=== PATIENT | female | born 1985 | race Caucasian/White ===

== ENCOUNTER → 2018-09-20 16:23 | Outpatient (CLI) | payer OTHER, SELFPAY ==
[2018-09-20 17:36] LABS: Group B Strep DNA By PCR POSITIVE (Negative)
[2018-09-20 17:37] LABS: Probe Check PASS
== END ==
PROVIDERS: Referring Provider Obstetrics & Gynecology; Visit Provider Obstetrics & Gynecology
DX: O09.93 Supervision of high risk pregnancy, unspecified, third trimester (principal); Z3A.36 36 weeks gestation of pregnancy
CPT/HCPCS: 87081; 87653

== ENCOUNTER 2018-09-21 15:49 | Inpatient (IN) | payer OTHER, SELFPAY ==
[2018-09-21 16:04] VITALS: BMI 51.8
[2018-09-21] MEDS: Lactated Ringers 1,000 ML 50 ML IV (16:35)
[2018-09-21 16:54] VITALS: BP 175/92; PULSE 79
[2018-09-21 17:02] LABS: Hematocrit 35.9 % (37-47); Hemoglobin 11.5 g/dl (12.0-15.0); Mean Corpuscular Hgb 28.3 pg (27.0-32.0); Mean Corpuscular Volume 88.4 fL (81-99); Platelet Count 231 K/mm3 (150-450); RBC Distribution Width CV 14.7 % (11.6-14.6); Red Blood Count 4.06 M/mm3 (4.2-5.4); Scan Indicated on CBC? Y/N NO; White Blood Count 16.7 K/mm3 (4.4-11.0)
[2018-09-21 17:09] LABS: International Normalized Ratio 0.9; Prothrombin Time (Protime)PT. 12.6 SECONDS (11.7-14.9)
[2018-09-21 17:10] LABS: Partial Thromboplast Time 24.9 Seconds (24.1-36.2)
[2018-09-21 17:13] LABS: AST(SGOT) 8 U/L (15-37); Alanine Aminotransfer ALT/SGPT 18 U/L (13-56); Creatinine, Serum 0.64 mg/dL (0.55-1.02); EST Glomerular Filtration Rate 112 mL/min (>60); Est Glom Filt Rate - Afr Amer 136 mL/min (>60); Estimated Creatinine Clearance 103.42 ml/min; Uric Acid 5.3 mg/dL (2.6-6.0)
[2018-09-21 17:20] VITALS: BP 167/91; PULSE 85
[2018-09-21] MEDS: miSOPROStol 25 MCG TABLET VAGINAL (19:38)
--- NOTE | 2018-09-21 19:54 | PCM.HP.OB ---
History Date of Admission: 09/21/18 Final HANK: 10/17/18 Gestational age: 36 Weeks and 2 Days History of this : This is a 33 year-old, G [], P [], at 36 weeks gestational age. Medical History: Medical History (Last Updated 09/21/18 @ 19:55 by Igor Cook) Anemia affecting O99.019 Hx LEEP (loop electrosurgical excision procedure), cervix, O34.40, Z98.890 Obesity affecting O99.210 Chronic hypertension affecting O10.919 Allergies sulfamethoxazole [From Bactrim] Allergy (Unverified 09/21/18 16:05) Rash trimethoprim [From Bactrim] Allergy (Verified 09/21/18 19:27) Rash Home Medications: Home Medications Aspirin [Aspirin, Baby] 81 mg PO DAILY@0800 09/21/18 Ferrous Sulfate [Slow Fe] 65 mg PO QHS 09/21/18 Labetalol [Trandate] 800 mg PO TID 09/21/18 Vits [Prenatabs FA] 1 tablet PO DAILY 09/21/18 Smoking Status: Never smoker Alcohol: None Number of Fetus(es): 1 Heart Tracin with moderate variability, accels TOCO Analysis: quiet History Past Pregnancies: Past Pregnancies Delivery Date Name GA/Weeks Outcome Route Weight Infant Gender Labor Length Anesthesia Delivery Location Provider FOB Labs: see [facility] for records Physical Exam Vitals: Vital Signs Pulse BP 85 167/91 H 09/21/18 17:20 09/21/18 17:20 General: Alert, Oriented x3 Abdomen: Soft, Non Tender, Non-Distended TRADE FACILITATOR: Normal external genitalia Estimated gestational size: Appropriate for gestational size Cervix Dilation (cm): 0 Station: -3 Effacement (%): 50 Assessment/Plan This is a 33 year-old at 36&2 weeks gestational age with uncontrolled chtn Admit to L&D Induction - vaginal cytotec placed Hypertension - preE labs reviewed. Continue labetalol 800mg tid. S/p IV hydralazine & PO procardia. Starting procardia XL 60mg scheduled. GBS positive - pcn per protocol EFW - less than 4500g, patient with adequate pelvis
[2018-09-21] MEDS: Acetaminophen 325 MG Tablet PO (20:04)
[2018-09-21] MEDS: NIFEdipine 60 MG Tablet PO (20:05)
[2018-09-21] MEDS: Labetalol 200 MG Tablet 800 MG PO (20:38)
--- NOTE | 2018-09-21 22:33 | PCM.PN.BLA ---
Progress Note S: Patient denies complaints O: BP currently 156/76, some 160's-170's/80's A&P: continue labetalol & nifedipine XL scheduled Will initiate nicardipine drip for persistent severe range blood pressures. Discussed with & ELISHA to start after using oral nifedipine XL. Plan of care discussed with nursing staff.
[2018-09-22] MEDS: miSOPROStol 25 MCG TABLET 50 MCG PO (00:09)
[2018-09-22] MEDS: Acetaminophen 325 MG Tablet PO ×4 (03:44→21:01)
--- NOTE | 2018-09-22 05:09 | PCM.PN.BLA ---
Progress Note S: Patient feels some ctxs. Headache has resolved. O: BP's - 148-183/78-103 cvx - FT/60/-3 fhts - 130 with moderate variability, accels tocos - irregular A&P: Continue induction for poorly controlled chtn - on cytotec. Elevated BP's - titrate nicardipine drip to control BP's. Continue oral labetalol & nifedipine XL. Monitor for preeclampsia.
[2018-09-22] MEDS: Labetalol 200 MG Tablet 800 MG PO (05:18)
--- NOTE | 2018-09-22 07:35 | EKGRS_ITS ---
Test Reason : SEVERE HTN Blood Pressure : / mmHG Vent. Rate : 089 BPM Atrial Rate : 089 BPM P-R Int : 174 ms QRS Dur : 076 ms QT Int : 372 ms P-R-T Axes : 027 006 036 degrees QTc Int : 452 ms Normal sinus rhythm Normal ECG No previous ECGs available Confirmed by SUBHASH CHAKRABORTY, AMBERLY ([id number]), school photograph editor KAYLAN TOMPKINS ([id number]) on 09/22/2018 8:45:57 AM Referred By: Ava Alvarez Confirmed By:AMBERLY CULLEN MD
--- NOTE | 2018-09-22 07:37 | ECHOD_ITS ---
Reason For Study: HTN Procedure This was a 2D Doppler, Color Flow transthoracic echocardiogram. Technically difficult study. Patient is undergoing labor induction and laying towards her right side in order for babies heart rate to be monitored. Exam performed portable in patient room. Left Ventricle Normal size and thickness. The estimated ejection fraction is 65 %. Normal diastology for age. No regional wall motion abnormalities noted. Right Ventricle Normal size and thickness. Normal systolic function. Atria Normal left atrium. Normal right atrium. Normal atrial septum. Mitral Valve The mitral valve is structurally normal. No prolapse or stenosis seen. Tricuspid Valve Normal tricuspid valve. Unable to estimate RV systolic pressure due to inadequate jet, pulmonary artery pressure probably normal. Aortic Valve Normal aortic valve. Trisinus/trileaflet aortic valve. Pulmonic Valve Normal pulmonic valve. Great Vessels Normal aortic root. Normal arch. Normal inferior vena cava. Inferior vena cava collapse with sniff. Pericardium/Pleural No pericardial effusion. MMode/2D Measurements & Calculations LVIDd: 4.9 cm IVSd: 1.5 cm LA dimension: 3.3 cm LVIDs: 3.2 cm LVPWd: 1.1 cm FS: 34.3 % LAV(MOD-sp4): 34.5 ml LA A4 area: 15.3 cm2 Time Measurements MV dec time: 0.18 sec Doppler Measurements & Calculations MV E max robby: 67.2 cm/sec Lat Peak E' Robby: 9.2 cm/sec Med Peak E' Robby: 10.6 cm/sec MV A max robby: 94.1 cm/sec E/E' lat: 7.3 E/E' med: 6.3 MV E/A: 0.71 Ao V2 max: 161.8 cm/sec LV V1 max: 119.5 cm/sec PA V2 max: 113.6 cm/sec Ao max P.5 mmHg LV V1 max P.7 mmHg Ao V2 mean: 108.6 cm/sec LV V1 mean P.6 mmHg Ao mean P.4 mmHg LV V1 mean: 72.5 cm/sec Ao V2 VTI: 30.2 cm LV V1 VTI: 23.7 cm Interpretation Summary The estimated ejection fraction is 65 %. Normal diastology for age. Unable to estimate RV systolic pressure due to inadequate jet, pulmonary artery pressure probably normal. There is no comparison study available. Ordering Physician: Ava Alvarez Referring Physician: Ava Alvarez Performed By: Milo Mcmullen RCS
--- NOTE | 2018-09-22 07:41 | PCM.PN.BLA ---
Progress Note Feeling some contractions. No TEJADA or visual changes. Tired. BPs labile edema-2+, DTrs 2+ abd- soft, nontender, gravid Cervix - .5/50/-3, medium consistency, mid position truong placed over stylette in usual sterile fashion and inflated to 30 cc. Placement over internal os confirmed a/p 33 YOF G1 @ 36 weeks w/ chronic HTN, now labile BPs, severe range will prophylax w/ magensium due to labile HTN, preeclampsia labs normal Monitor BP closely will proceed to pit and truong induction for now AROM when able check ECG and cardiac echo if need to restart nicardipine gtt will consult ICU formally discussed with Dr. fonseca, I am assuming care today
[2018-09-22] MEDS: Magnesium Sulfate 4gm/100mL 6 GM/150 ML IV.SOLN. IV (07:57)
[2018-09-22] MEDS: Magnesium Sulfate 20 GM/500 ML BAG IV ×2 (08:33→18:23)
[2018-09-22] MEDS: Oxytocin 30 units/NS 500 ml 30 UNITS/500 ML IV.SOLN IV (08:42)
[2018-09-22 08:55] VITALS: PULSE 84
[2018-09-22] MEDS: hydrALAZINE 20 MG/ML Vial IV (08:55)
[2018-09-22] MEDS: Lactated Ringers 1,000 ML 50 ML IV ×2 (08:57→15:02)
[2018-09-22] MEDS: fentaNYL-bupivacaine (epidural) 100 ML BAG EPIDURAL ×3 (10:12→19:48)
[2018-09-22 10:25] LABS: Hematocrit 37.1 % (37-47); Hemoglobin 11.9 g/dl (12.0-15.0); Mean Corp Hgb Conc 32.1 g/gl (32-36); Mean Corpuscular Volume 87.3 fL (81-99); Mean Platelet Vol. 9.8 fl (6.2-12.0); Platelet Count 217 K/mm3 (150-450); RBC Distribution Width CV 14.8 % (11.6-14.6); RBC Distribution Width SD 46.1 fl (35.1-43.9); Red Blood Count 4.25 M/mm3 (4.2-5.4); White Blood Count 16.9 K/mm3 (4.4-11.0)
[2018-09-22 10:27] LABS: Scan Indicated on CBC? Y/N NO
[2018-09-22 10:31] LABS: Protein, Urine (Random) 12.1 mg/dL (<11.9); Protein:Creat Ratio 268 mg/g CRE (0-200)
[2018-09-22 10:35] LABS: AST(SGOT) 9 U/L (15-37); Alanine Aminotransfer ALT/SGPT 16 U/L (13-56); Creatinine, Serum 0.62 mg/dL (0.55-1.02); EST Glomerular Filtration Rate 116 mL/min (>60); Est Glom Filt Rate - Afr Amer 141 mL/min (>60); Estimated Creatinine Clearance 106.76 ml/min; Uric Acid 5.2 mg/dL (2.6-6.0)
[2018-09-22 10:40] LABS: Partial Thromboplast Time 25.5 Seconds (24.1-36.2)
--- NOTE | 2018-09-22 12:44 | PCM.PN.BLA ---
Progress Note Feels tired, nauseated and hot. No CP/SOB or visual changes. Frustrated. Not that comfortable even after epidural BPs still labile. Monitoring closely. Marks removed , /-3, AROM w/ large clear fluid. IUPC and FSE placed FHTs normal baseline, moderate variability, some variables after AROM, resolved w/ repositioning tocos- ctx q 3 min a/p 33 YOF w/ labile bp, chronic HTN, considering superimposed preeclampsia w/ severe range BPs at times titrating meds to control BP. Due for labetalol at 2 pm, may give earlier if bps trend up. D/w her recommend cont. induction due to her being high risk surgical patient encouraged to rest and will get epidural replaced if necessary to control pain patient agrees w/ plan
--- NOTE | 2018-09-22 15:06 | PCM.PN.BLA ---
Progress Note Pain well controlled now w/ epidural. Resting. BP controlled w/ nicardipine drip FHTs w/ normal baseline, minimal variability at times, no recurrent decelerations Hold labetalol, control bps w/ nicardipine for now cont. expectant management for vaginal delivery ICU consultation ordered for severe HTN.
--- NOTE | 2018-09-22 15:42 | CON.PCM_ITS ---
Problem List (1) Pre-eclampsia added to pre-existing hypertension Status: Acute Reason for Consult Date of Consultation: 09/22/18 Reason for Consultation: Hypertension History of Present Illness: The patient is a 33 year old F at 36 and 3 weeks gestational age, who presented to [facility] on 09/21/2018 secondary to labor pains. Patient was found to have significant hypertension and was given labetalol and nifedipine. Pressures continued to be elevated, so patient had to be started on nicardipine drip overnight. Some pressures had improved, so this was able to be discontinued this morning. However, this afternoon patient's blood pressure continued to elevate, so it had to be reinitiated. An ICU consult was obtained for assistance in management with Aris guerra. Patient currently is reporting a mild headache. Patient states she has no focal neurologic deficits. Patient is reportedly progressed to 2 cm and is being monitored continuously. Patient denies any chest pain, abdominal pain, nausea or vomiting. Patient reports her pain is well controlled with epidural. Patient reports no significant past medical history until approximately 2 months before . Patient reportedly was complaining of significant headaches on an almost daily basis. Patient reportedly was then diagnosed with hypertension and was started on propranolol. Patient states this had significant improvement in headaches, but had to be discontinued secondary to . Patient had been transitioned over to labetalol and prior to presentation was receiving 800 mg p.o. 3 times daily. Patient denies any history of asthma or toxic exposure. Patient does have morbid obesity, but denies any obstructive sleep apnea. Patient does report a history of hypertension in her father. Past Medical History Medical History: Medical History (Last Updated 09/21/18 @ 19:55 by Igor Cook) Anemia affecting O99.019 Hx LEEP (loop electrosurgical excision procedure), cervix, O34.40, Z98.890 Obesity affecting O99.210 Chronic hypertension affecting O10.919 Allergies sulfamethoxazole [From Bactrim] Allergy (Verified 09/22/18 10:02) Rash trimethoprim [From Bactrim] Allergy (Verified 09/22/18 10:02) Rash Home Medications: Ambulatory Orders Medication Instructions Recorded Aspirin [Aspirin, Baby] 81 mg PO DAILY@0800 09/21/18 Ferrous Sulfate [Slow Fe] 65 mg PO QHS 09/21/18 Labetalol [Trandate] 800 mg PO TID 09/21/18 Vits [Prenatabs FA] 1 tablet PO DAILY 09/21/18 Smoking Status: Never smoker Alcohol: None Review of Systems Comment: See HPI, otherwise negative x10 systems. Patient Problems: Active and Suspected Problems (Last Updated 09/21/18 @ 19:55 by Igor Cook) Pre-eclampsia added to pre-existing hypertension (Acute) Objective: Echocardiogram shows an EF of 65% with normal diastolic function. Unable to estimate RVSP, but assume normal. EKG shows normal sinus rhythm without LVH. - Physical Exam General: Alert, Oriented x3, Cooperative, No apparent distress, - - Morbidly obese. Speaking in full sentences. HEENT: Atraumatic, PERRLA, EOMI, Normocephalic, - - Scleral icterus or injection noted. Glasses in place. Oral: Moist Mucosa, No Gingival or Mucosal Lesions/ Ulcerations Neck: Supple, No JVD, No Nodes, Trachea Midline Lungs: Clear to auscultation, Normal air movement, No rhonchi, No wheeze, No rales Cardiovascular: Regular rate, Regular Rhythm, Normal S1, Normal S2, No murmurs, No rub noted, No Gallop Abdomen: Bowel Sounds Present, Soft, Non Tender, Obese, - - Gravid uterus Extremities: No clubbing, No cyanosis, Capillary Refill Less than 3 Seconds, Edema - Lower extremities Skin: No rashes, No breakdown Musculoskeletal: No Tenderness to Palpation of Joints or Extremities Lymphatic: No Cervical, Supraclavicular, or Inguinal Adenopathy Neurological: Cranial nerves II-XII grossly intact, Neuro grossly intact, Motor Exam 5/5 strength throughout Psych/Mental Status: Alert and oriented to time, place, person, mood and affect Vital Signs Pulse BP 84 167/91 H 09/22/18 08:55 09/21/18 17:20 Weight: 132.8 kg Body Mass Index (BMI) 51.8 Intake and Output for Last 24 Hours 09/20/18 09/21/18 09/22/18 23:59 23:59 23:59 Output Total 550 / 550 850 / 850 Balance -550 / -550 -850 / -850 Laboratory Tests Past 24 Hrs 09/21/18 09/21/18 09/21/18 16:35 16:35 16:35 WBC 16.7 H RBC 4.06 L Hgb 11.5 L Hct 35.9 L MCV 88.4 MCH 28.3 MCHC 32.0 RDW 14.7 H RDW Differential 46.0 H Plt Count 231 MPV 10.0 PT 12.6 INR 0.9 APTT 24.9 Creatinine Estim Creat Clear Calc Est GFR (MDRD) Af Amer Est GFR (MDRD) Non-Af Uric Acid AST ALT U Random Total Protein Urine Creatinine Protein/Creatinin Ratio Blood Type A NEGATIVE Antibody Screen NEGATIVE 09/21/18 09/22/18 09/22/18 16:35 09:50 09:50 WBC 16.9 H RBC 4.25 Hgb 11.9 L Hct 37.1 MCV 87.3 MCH 28.0 MCHC 32.1 RDW 14.8 H RDW Differential 46.1 H Plt Count 217 MPV 9.8 PT 13.0 INR 1.0 APTT 25.5 Creatinine 0.64 Estim Creat Clear Calc 103.42 Est GFR (MDRD) Af Amer 136 Est GFR (MDRD) Non-Af 112 Uric Acid 5.3 AST 8 L ALT 18 U Random Total Protein Urine Creatinine Protein/Creatinin Ratio Blood Type Antibody Screen 09/22/18 09/22/18 09:50 09:50 WBC RBC Hgb Hct MCV MCH MCHC RDW RDW Differential Plt Count MPV PT INR APTT Creatinine 0.62 Estim Creat Clear Calc 106.76 Est GFR (MDRD) Af Amer 141 Est GFR (MDRD) Non-Af 116 Uric Acid 5.2 AST 9 L ALT 16 U Random Total Protein 12.1 H Urine Creatinine 45.10 Protein/Creatinin Ratio 268 H Blood Type Antibody Screen Assessment/Plan Active and Suspected Problems (Last Updated 09/21/18 @ 19:55 by Igor Cook) Pre-eclampsia added to pre-existing hypertension (Acute) RECOMMENDATIONS: 1. Titrate nicardipine for systolic less than 160 2. Monitor for focal neurologic deficits 3. monitoring and delivery options per OB 4. Monitor for seizure activity 5. Monitor fetus for deceleration and hypotension after delivery 6. Okay to transfer to the intensive care unit if necessary IMPRESSIONS: 1. Preeclampsia with accelerated hypertension Patient with significant protein noted in the urine and elevated blood pressures. Patient has been initiated on Cardene drip. May continue baseline labetalol and other medications for blood pressure while on Cardene. Would titrate as orders currently states. Clinical suspicion that nicardipine will be required through the delivery. Patient is having a headache at this time, but no focal neurologic deficits or seizure activity has been reported. Would defer to OB on delivery options. monitoring currently in place. 2. Morbid obesity/history of hypertension Complicates care, management, recovery and prognosis. Code Visit Inpatient E&M: 10164 Init Hosp L3
--- NOTE | 2018-09-22 21:30 | PCM.PN.BLA ---
Progress Note Patient is moderately comfortable with epidural. She complains of some pain in her mid abdomen especially on the left side. Worse with contractions. She has a mild headache and just received some Tylenol for this. heart tones show normal baseline with moderate variability and no repetitive decelerations. Tocometer shows contractions every 2-3 minutes. Cervical examination reveals that the cervix is still 2 cm dilated 70% effaced and -4 station. The head is not significantly engaged and has not changed station since induction was initiated. Is been approximately 30 hours since the patient arrived in and that time she is received Cytotec, Pitocin, Marks and artificial rupture membranes. Despite all these measures, her cervix remains unfavorable. It still firm and the head is unengaged. I discussed with the patient options of continuing induction at this point. Her blood pressure stable and heart tones are reassuring. However, after 30 hours the patient still has not entered into active labor. Patient had been asking for a since noon today, but had agreed to continue to attempted induction of labor. Risk benefits and alternatives to primary were discussed with the patient, her questions were answered and she desires to proceed. The team will be prepared. We will proceed when team and OR ready
[2018-09-22] MEDS: 0.9% Saline Lock 10 ML Syringe IV (21:38)
[2018-09-22] MEDS: Sodium Citrate/Citric Acid 30 ML UDC PO (22:15)
[2018-09-22] MEDS: Oxytocin 30 units/NS 500 ml 30 UNITS/500 ML IV.SOLN 167 UNITS IV (23:00)
--- NOTE | 2018-09-22 23:00 | PLAC_PTH ---
PATIENT: BINDU JAIMES LOC: [facility] U#:[id number] AGE/SX: 33/F ROOM: WP020 RE09/21/[address]: Dr. Ava Alvarez MD : [id number] BED: 1 DIS: 09/25/2018 SPEC #: [id number] RECD: 09/23/18 02:58 STATUS: CODY REErna #: [id number] MAYELIN: 09/22/18 23:[address]: Ava Alvarez DEPT: SURGICAL PATHOLOGY RECD BY: Gigi Douglas ENTERED: 09/23/18 10:24 SP TYPE: PLACENTA OTHR DR: Dr. Elissa Carreno, DO No Primary Care Phys Tissues: Placenta, NOS Procedures: Surgery Specimen Level V HEADER OPERATION: Primary section PRE-OP DIAGNOSIS: Preeclampsia TISSUE SUBMITTED: Placenta MICROSCOPIC DIAGNOSIS Placenta: Placental disc - third trimester placenta (376 gm). Membranes - no pathologic diagnosis. Umbilical cord - three blood vessels and no pathologic diagnosis. :janiya 09/24/18 MICROSCOPIC DESCRIPTION Slides are reviewed. GROSS DESCRIPTION SPECIMEN: PLACENTA / CLINICAL INFORMATION: A. Weight: 2.752 kg B. Gestational Age: 36 weeks C. Sex: Female PLACENTAL WEIGHT (POST FIXATION): 376 gm PLACENTAL DIMENSIONS: 16 x 14 x 2.2 cm PLACENTAL SHAPE: Usual ovoid PLACENTAL WEIGHT FOR GESTATIONAL AGE: Within 10-99th percentile MEMBRANES - Present A. Insertion: Marginal B. Site of rupture from edge: 4.5 cm from edge of placental disc C. Color of membrane: Barnes-young D. Abnormalities: None UMBILICAL CORD - Present A. Color: Barnes-young B. Insertion: Near central insertion C. Length: 43 cm D. Diameter: 1.3 cm E. Number of vessels: Three F. Abnormalities: None PLACENTAL DISC - Present A. Color of surface: Barnes-young B. surface abnormalities: None C. Maternal cotyledons: Intact with minimal tears D. Attached retro placental clot: No clot E. Cut surface: Dark red and spongy F. Lesions: None G. Separate clot: Absent SECTIONS SUBMITTED: 1. Membrane roll and umbilical cord ( end inked) 2. Placental disc, and maternal surfaces 3. Placental disc, and maternal surfaces 4. Placental disc, and maternal surfaces AM:janiya 09/23/18 More sections of umbilical cord is submitted in cassette 5. / SJ:janiya 09/24/18 TC:4 CPT: 03715
--- NOTE | 2018-09-22 23:36 | OP.PCM_ITS ---
Delivery Classification: BETY Final HANK: 10/17/18 Final HANK Source: US <20 weeks Gestational age: 36 Weeks and 3 Days Indications: Failed induction, preeclampsia with severe features, severe hypertension Indications for : - - failed induction, Description of Procedure: The patient was taken to the operating room. She was prepped and draped in the dorsal supine position with a leftward tilt. A Pfannenstiel skin incision was made approximately 2 cm above the symphysis pubis and carried through to underlying layer fascia with the scalpel. The fascia was incised incised in the midline and extended laterally with the Braun scissors. The fascia was dissected off the rectus muscles with blunt and sharp dissection. The rectus muscles were in the midline and the peritoneum was entered bluntly. The peritoneal incision was stretched and the bladder blade was placed. The uterine incision was made in a low transverse fashion with the scalpel and e xtended superiorly and inferiorly with blunt dissection. The amniotic membranes were ruptured bluntly and clear amniotic fluid returned. The 's head was brought to the incision in the flexed position and delivered without difficulty. The remainder of the was delivered with gentle traction and fundal pressure in the standard fashion. The mouth and nares were bulb suctioned. The cord was clamped and cut as the was stimulated. Cord clamping was delayed. The infant was handed off to the waiting nursing staff. The placenta was delivered with fundal massage and gentle traction in the standard fashion. The uterus was exteriorized and cleared of all clots and debris. The cervix was dilated with a ring forcep. The uterine incision was closed with #1 Vicryl in a running locked fashion. A second layer of the same suture was used in an imbricating fashion. The incision was examined and was found to be hemostatic. The uterus was placed back into the peritoneal cavity and hemostasis was again confirmed. The rectus muscles were examined and any bleeding was Bovie cauterized. The parietal peritoneum and rectus muscles were closed en bloc with an 0 Vicryl running suture. The surgical teams outer gloves were then changed. The rectus fascia was examined and any bleeding was Bovie cauterized. Some Guy was placed over the rectus muscles and the rectus fascia was closed with #1 PDS suture in a running standard fashion. The subcutaneous tissue was examining and any bleeding was Bovie cauterized. Guy was placed in the subcutaneous tissue the subcutaneous tissue was reapproximated with 3-0 Vicryl suture in 2 layers. The skin was closed in a subcuticular fashion with Monocryl suture. I performed the entire procedure with assistance. All sponge, lap, and needle counts were correct. The patient was taken to her room for recovery in a stable condition. Amniotic Membrane Rupture Type: Artificial Amniotic Fluid Description: Clear Placenta Disposition: Sent to Pathology Cord Entanglement: Around neck x 1, loose Nuchal Cord Compression: Without compression Cord Vessel Description: 3 Vessels Esitmated Blood Loss (ml): 800 Gender: Female Delayed cord clamping: Yes Pre-op Antibiotic Given: - - Ancef 3 g Complications: None - Admit VTE Documentation VTE Present on Admission: No VTE Mechan Device Prophylaxis: SCD's VTE Pharm Prophylaxis ordered?: Yes
[2018-09-22 23:55] VITALS: BP 162/81; BP 163/77; PULSE 99; RESP 22; TEMP 36.8; O2SAT 95
[2018-09-23] VITALS (37 sets, daily range): BP systolic 101–174; BP diastolic 56–90; PULSE 68–99; RESP 13–26; TEMP 36.3–37.2; O2SAT 92–97
[2018-09-23] MEDS: 0.9% Saline Lock 10 ML Syringe IV ×4 (00:28→23:15)
[2018-09-23] MEDS: Labetalol 200 MG Tablet 800 MG PO (01:04)
[2018-09-23] MEDS: Lactated Ringers 1,000 ML 50 ML IV ×2 (01:57→17:17)
[2018-09-23 03:00] LABS: Pathology Specimen OB SEE PATHOLOGY REPORT
[2018-09-23] MEDS: Magnesium Sulfate 20 GM/500 ML BAG IV ×2 (05:02→15:16)
[2018-09-23] MEDS: Nalbuphine 10 MG/ML Ampul 5 MG IV (05:03)
[2018-09-23] MEDS: Ketorolac 30 MG/ML Syringe IV ×4 (06:06→18:12)
[2018-09-23 06:23] LABS: Hematocrit 38.3 % (37-47); Mean Corp Hgb Conc 31.3 g/gl (32-36); Mean Corpuscular Hgb 27.8 pg (27.0-32.0); Mean Corpuscular Volume 88.7 fL (81-99); Mean Platelet Vol. 9.9 fl (6.2-12.0); Platelet Count 241 K/mm3 (150-450); RBC Distribution Width CV 14.9 % (11.6-14.6); RBC Distribution Width SD 46.6 fl (35.1-43.9); Red Blood Count 4.32 M/mm3 (4.2-5.4)
[2018-09-23 06:27] LABS: Scan Indicated on CBC? Y/N NO
--- NOTE | 2018-09-23 07:12 | NURSING ---
nasal cannula placed on pt at this time at 2LPM per VO .
--- NOTE | 2018-09-23 09:36 | PCM.PN.OB ---
Patient Problems: Active and Suspected Problems (Last Updated 09/21/18 @ 19:55 by Igor Cook) Pre-eclampsia added to pre-existing hypertension (Acute) Subjective: pain well controlled, average lochia, nausea after surgery resolved now. Hungry. Denies TEJADA or visual changes - Physical Exam General: Alert, Cooperative, No apparent distress Abdomen: Soft, Non-Distended, Tender - appropriately Extremities: Edema - 1+, - - 1+ DTRs, no clonus Skin: Incision - clean, dry and intact Vital Signs Temp Pulse Resp BP Pulse Ox 97.3 F L 83 18 101/56 L 97 09/23/18 08:00 09/23/18 08:00 09/23/18 08:00 09/23/18 08:00 09/23/18 08:00 Oxygen Flow Rate (L/min) 2 Oxygen Delivery Method Nasal Cannula Weight: 132.8 kg Body Mass Index (BMI) 51.8 Intake and Output for Last 24 Hours 09/21/18 09/22/18 09/23/18 23:59 23:59 23:59 Intake Total 757.9 / 757.9 1661 / 1661 Output Total 550 / 550 1999 / 1999 880 / 880 Balance -550 / -550 -1242.1 / -1242.1 781 / 781 Laboratory Tests Past 24 Hrs 09/22/18 09/22/18 09/22/18 09:50 09:50 09:50 WBC 16.9 H RBC 4.25 Hgb 11.9 L Hct 37.1 MCV 87.3 MCH 28.0 MCHC 32.1 RDW 14.8 H RDW Differential 46.1 H Plt Count 217 MPV 9.8 PT 13.0 INR 1.0 APTT 25.5 Creatinine Estim Creat Clear Calc Est GFR (MDRD) Af Amer Est GFR (MDRD) Non-Af Uric Acid AST ALT U Random Total Protein 12.1 H Urine Creatinine 45.10 Protein/Creatinin Ratio 268 H Screen Baby's Blood Type Baby's PAULINO 09/22/18 09/23/18 09/23/18 09:50 05:45 05:45 WBC 19.0 H RBC 4.32 Hgb 12.0 Hct 38.3 MCV 88.7 MCH 27.8 MCHC 31.3 L RDW 14.9 H RDW Differential 46.6 H Plt Count 241 MPV 9.9 PT INR APTT Creatinine 0.62 Estim Creat Clear Calc 106.76 Est GFR (MDRD) Af Amer 141 Est GFR (MDRD) Non-Af 116 Uric Acid 5.2 AST 9 L ALT 16 U Random Total Protein Urine Creatinine Protein/Creatinin Ratio Screen Pending Baby's Blood Type Pending Baby's PAULINO Pending Medical Necessity - Tobacco Use Smoking Status: Never smoker Assessment/Plan All Active Problems (Last Updated 09/21/18 @ 19:55 by Igor Cook) Pre-eclampsia added to pre-existing hypertension (Acute) POD#1 Status post primary for failed induction and preeclampsia with severe features. Liver pressures are much better controlled postoperatively. We will decrease her labetalol dose and monitor blood pressures closely. Continue magnesium for 24 hours. At 12 hours postop, if her blood pressures remain controlled and she does not have any neurological symptoms it would be okay to advance her diet. Infant is breast-feeding doing well.
[2018-09-23] MEDS: Enoxaparin 80 MG/0.8 ML Syringe SC (10:56)
[2018-09-23] MEDS: Senna/Docusate Sodium 1 Tablet PO ×2 (10:56→23:15)
[2018-09-23] MEDS: Labetalol 200 MG Tablet 600 MG PO (14:22)
[2018-09-23] MEDS: Labetalol 200 MG Tablet 400 MG PO (23:15)
[2018-09-24] MEDS: Ketorolac 30 MG/ML Syringe IV ×4 (00:20→17:34)
--- NOTE | 2018-09-24 01:10 | NURSING ---
mag sulfate discontinued
[2018-09-24 04:15] VITALS: BP 131/68; PULSE 83; RESP 18; TEMP 36.4; O2SAT 95
[2018-09-24 07:10] VITALS: BP 150/67; PULSE 81
[2018-09-24] MEDS: Labetalol 200 MG Tablet 400 MG PO ×3 (07:10→23:09)
--- NOTE | 2018-09-24 08:37 | PCM.PN.OB ---
Patient Problems: Active and Suspected Problems (Last Updated 09/21/18 @ 19:55 by Igor Cook) Pre-eclampsia added to pre-existing hypertension (Acute) Subjective: Pain well controlled, average lochia. Denies headache, chest pain, shortness of breath or visual changes. Passing flatus. Tolerating regular diet - Physical Exam General: Alert, Cooperative, No apparent distress Abdomen: Soft, Non-Distended, Tender - Appropriately Extremities: Edema - 2+, - - 2+ DTRs, no clonus Skin: Incision - Bandage clean dry and intact Vital Signs Temp Pulse Resp BP Pulse Ox 97.5 F L 81 18 150/67 H 95 09/24/18 04:15 09/24/18 07:10 09/24/18 04:15 09/24/18 07:10 09/24/18 04:15 Oxygen Flow Rate (L/min) 2 Oxygen Delivery Method Room Air Weight: 132.8 kg Body Mass Index (BMI) 51.8 Intake and Output for Last 24 Hours 09/22/18 09/23/18 09/24/18 23:59 23:59 23:59 Intake Total 757.9 / 757.9 4457 / 4457 Output Total 1999 2226 / 2226 Balance -1242.1 / -1242.1 2231 / 2231 Laboratory Tests Past 24 Hrs 09/23/18 05:45 Screen NEGATIVE Baby's Blood Type O POSITIVE Baby's PAULINO NEGATIVE Medical Necessity - Tobacco Use Smoking Status: Never smoker Assessment/Plan All Active Problems (Last Updated 09/21/18 @ 19:55 by Igor Cook) Pre-eclampsia added to pre-existing hypertension (Acute) Postoperative day #2 status post primary low transverse section for failed induction. Blood pressures are stable now. Labetalol has been decreased to 400 mg 3 times daily. Discussed with patient long-term goals of hypertension management versus short-term acceptable ranges for blood pressures. Infant is doing well. Patient is working on breast-feeding Likely home tomorrow if patient and infant continued to do well.
[2018-09-24 09:05] VITALS: BP 128/73; PULSE 86; RESP 20; TEMP 36.5; O2SAT 97
[2018-09-24] MEDS: Senna/Docusate Sodium 1 Tablet PO ×2 (10:42→23:09)
[2018-09-24] MEDS: 0.9% Saline Lock 10 ML Syringe IV ×3 (10:43→17:34)
[2018-09-24] MEDS: Enoxaparin 80 MG/0.8 ML Syringe SC (10:43)
[2018-09-24] MEDS: oxyCODONE 5 MG Tablet PO ×2 (14:16→20:27)
[2018-09-24 14:20] VITALS: BP 128/71; PULSE 92; TEMP 35.7; O2SAT 99
[2018-09-24 16:00] VITALS: BP 138/66; PULSE 81; RESP 18; TEMP 36.2; O2SAT 96
[2018-09-24 20:00] VITALS: BP 141/67; PULSE 88; RESP 18; TEMP 36.4; O2SAT 97
[2018-09-25] MEDS: Ketorolac 30 MG/ML Syringe IV (00:09)
[2018-09-25] MEDS: 0.9% Saline Lock 10 ML Syringe IV (00:14)
[2018-09-25 02:28] VITALS: BP 130/63; PULSE 86; RESP 16; TEMP 36.2; O2SAT 96
[2018-09-25] MEDS: oxyCODONE 5 MG Tablet PO ×2 (05:55→12:23)
[2018-09-25] MEDS: Labetalol 200 MG Tablet 400 MG PO (05:56)
--- NOTE | 2018-09-25 07:56 | PCM.PN.OB ---
Patient Problems: Active and Suspected Problems (Last Updated 09/21/18 @ 19:55 by Igor Cook) Pre-eclampsia added to pre-existing hypertension (Acute) Subjective: Patient doing well. She is voiding without difficulty. She is breast-feeding without difficulty. She had a bowel movement this morning and is passing flatus. She denies headaches, vision changes, upper abdominal pain, nausea, vomiting. She is tolerating regular diet. She denies leg pain. She feels ready to go home. - Physical Exam General: Alert, No apparent distress HEENT: Atraumatic Lungs: - - No increased resp effort Abdomen: Soft, Non Tender, Non-Distended, - - Silver dressing in place and c/d/i, no surrounding errythema Extremities: No Calf Tenderness Skin: No rashes Neurological: Neuro grossly intact Psych/Mental Status: Normal Affect, Appropriate Vital Signs Temp Pulse Resp BP Pulse Ox 97.2 F L 86 16 130/63 H 96 09/25/18 02:28 09/25/18 02:28 09/25/18 02:28 09/25/18 02:28 09/25/18 02:28 Oxygen Flow Rate (L/min) 2 Oxygen Delivery Method Room Air Weight: 292 lb 12.382 oz Body Mass Index (BMI) 51.8 Intake and Output for Last 24 Hours 09/23/18 09/24/18 09/25/18 23:59 23:59 23:59 Intake Total 4457 / 4457 Output Total 2226 / 2226 400 / 400 Balance 2231 / 2231 -400 / -400 Medical Necessity - Tobacco Use Smoking Status: Never smoker Assessment/Plan All Active Problems (Last Updated 09/21/18 @ 19:55 by Igor Cook) Pre-eclampsia added to pre-existing hypertension (Acute) POD#3 s/p section - BP's are stable. Discussed with patient to continue Labetalol and will check BP in 1 week in the office. Reviewed to call with any pre-eclampsia symptoms - Doing well post-op and meeting all milestones - - PPBC: Micronor rx sent - Dispo: D/c home to f/u in 1 week
--- NOTE | 2018-09-25 08:00 | DCINST_ITS ---
Discharge Diet: No Restrictions Discharge Activity: May not drive while taking narcotic pain medications., May Shower May resume sexual activity in: 4-6 weeks Weight Bearing Status: Full weight bearing Lifting Restrictions: Nothing greater than 20 lbs Call your doctor if your incision/area has: Sudden Increased Bleeding, Increased Pain/ Swelling, Increased Redness, Foul Smelling Discharge, Swelling at the incision site Call your doctor if you observe: Fever of 101 or Higher, Inability to urinate, Inability to have a bowel movement, Using more than one pad per hour, Shortness of breath, Dizziness, Chest pain, Increased palpitations (irregular heartbeat), Calf discomfort, Uncontrolled pain, - - Headaches, vision changes, upper abdominal pain, vomiting Change Dressing in (Days):: 5 Additional Instructions: If you experience any of the following, contact your healthcare provider. * Bleeding that soaks a pad every hour for 2 hours * Fever 100.4 or higher * Unrelieved incision or abdominal pain * Swelling, redness, discharge or bleeding from your incision or episiotomy site * Your incision begins to separate * Problems urinating (including inability to urinate or burning while urinating). * Visual changes * Severe headache * Flu-like symptoms * Pain or redness in one of both of your breasts * Pain, warmth, tenderness or swelling in your legs, especially the calf area * Frequent nausea and vomiting * Symptoms of depression or anxiety If you experience any of the following, call 911 or go to the nearest Emergency Room. * Chest pain * Problems breathing * Seizure activity * Partial or complete paralysis of a body part, slurred speech, weakness or drooping of the face, or a sudden inability to walk or hold your balance Allergies/Adverse Reactions: Allergies sulfamethoxazole [From Bactrim] Allergy (Verified 09/22/18 10:02) Rash trimethoprim [From Bactrim] Allergy (Verified 09/22/18 10:02) Rash Medications to take at Discharge Aspirin [Aspirin, Baby] 81 mg PO DAILY@0800 09/21/18 Ferrous Sulfate [Slow Fe] 65 mg PO QHS 09/21/18 Labetalol [Trandate] 800 mg PO TID 09/21/18 Vits [Prenatabs FA] 1 tablet PO DAILY 09/21/18 Follow-Up: Call to make an appointment with your doctor for an incision check in 1-2 weeks. You will also need a 6 week post- follow up appointment. Test results from this visit will be discussed in further detail at your follow- up appointment, if applicable. Please Follow Up With: Ava Alvarez MD When: 1 week and then 6 weeks Primary Care Physician: Elissa Carreno, [Primary Care Provider] -
[2018-09-25] MEDS: Enoxaparin 80 MG/0.8 ML Syringe SC (11:23)
[2018-09-25 13:50] VITALS: BP 143/64; PULSE 81; RESP 16; TEMP 36.6
--- NOTE | 2018-09-25 16:03 | NURSING ---
1350 Eager to go home. States she is ready to leave as she has been here for what seems like forever. States yes, she feels able to care for herself and her baby. Discharged per wheelchair to car with .
--- NOTE | 2018-09-28 08:04 | PCM.DC.SUM ---
Discharge Date and Diagnosis Date of Admission: 09/21/18 Date of Discharge: 09/25/18 Hospital Course and Treatment Operations: - - Primary low transverse section Via Pfannenstiel skin incision Procedures: 2-D Echocardiogram Summary of Care Provided: The patient is a 33 year old 1 para 0 female presented to labor and delivery for induction due to difficult to control blood pressures. She is been diagnosed during the is chronic hypertension with difficult to control blood pressures. During her induction, her blood pressures spiked into the severe range several times and she required IV medications and eventually a nicardipine drip to control her blood pressures. During the induction, it was determined that she met criteria for preeclampsia with severe features and magnesium prophylaxis was initiated. Patient had received betamethasone doses the week prior to induction. She had Cytotec followed by Marks induction. The Marks was removed and the patient was approximately 2 cm due to difficulty tracing the heart tones. Artificial rupture membranes was performed and internal monitors were placed. After more than 12 hours Pitocin and artificial rupture membranes, the head remained unengaged, and there had been no significant change in dilation or effacement. The patient had been being induced for approximately 30 hours at that point, and I discussed with her the options of continuing this very prolonged induction versus primary section. Patient elected for section. The primary low transverse section Via Pfannenstiel skin incision was performed on the evening of 09/22/2018 . She had a double layer closure of the uterine incision with Vicryl suture. She remained on magnesium prophylaxis 24 hours . Her blood pressures were much more labile after delivery. She was weaned down to labetalol 400 mg 3 times daily and discharged home on this. By postoperative day #3, she was ambulating, urinating and tolerating regular diet without difficulty. She was given routine prescriptions and instructions. She was instructed to monitor her blood pressures and call us for severe ranges or any symptoms of preeclampsia . She is to follow-up in our office within 1 week. [] - Physical Exam Vital Signs Temp Pulse Resp BP Pulse Ox 97.8 F 81 16 143/64 H 96 09/25/18 13:50 09/25/18 13:50 09/25/18 13:50 09/25/18 13:50 09/25/18 02:28 Oxygen Flow Rate (L/min) 2 Oxygen Delivery Method Room Air Weight: 132.8 kg Body Mass Index (BMI) 51.8 Discharge Diet: No Restrictions Discharge Activity: May not drive while taking narcotic pain medications., May Shower May resume sexual activity in: 4-6 weeks Weight Bearing Status: Full weight bearing Call your doctor if your incision/area has: Sudden Increased Bleeding, Increased Pain/ Swelling, Increased Redness, Foul Smelling Discharge, Swelling at the incision site Call your doctor if you observe: Fever of 101 or Higher, Inability to urinate, Inability to have a bowel movement, Using more than one pad per hour, Shortness of breath, Dizziness, Chest pain, Increased palpitations (irregular heartbeat), Calf discomfort, Uncontrolled pain, - - Headaches, vision changes, upper abdominal pain, vomiting Change Dressing in (Days):: 5 Home Medications: Medications to take at Discharge Aspirin [Aspirin, Baby] 81 mg PO DAILY@0800 09/21/18 Ferrous Sulfate [Slow Fe] 65 mg PO QHS 09/21/18 Labetalol [Trandate] 800 mg PO TID 09/21/18 Vits [Prenatabs FA] 1 tablet PO DAILY 09/21/18 Norethindrone [Ortho Micronor] 0.35 mg PO DAILY #30 tablet 09/25/18 Oxycodone HCl/Acetaminophen [Percocet 5/325] 1 tablet PO Q6H PRN PRN 7 Days #28 tablet 09/25/18 Following Prescrptions Were Given to Patient: Oxycodone HCl/Acetaminophen [Percocet 5/325] 1 tablet PO Q6H PRN PRN 7 Days #28 tablet PRN Reason: Pain Norethindrone [Ortho Micronor] 0.35 mg PO DAILY #30 tablet Primary Care Physician: Elissa Carreno DO [Primary Care Provider] - Please Follow Up With: Ava Alvarez MD When: 1 week and then 6 weeks Medical Necessity - Tobacco Use Smoking Status: Never smoker Meaningful Use Info Meaningful Use Diagnoses (Choose all that apply): None applicable
--- NOTE | 2018-09-30 14:46 | NURSING ---
Doing well . Has appt for tomorrow.
== END 2018-09-25 13:50 | disposition home or self-care (01) | DRG 786 ==
PROVIDERS: Admitting Provider Obstetrics & Gynecology; Referring Provider Obstetrics & Gynecology; Visit Provider Obstetrics & Gynecology
DX: O11.3 Pre-existing hypertension with pre-eclampsia, third trimester (principal); O60.14X0 Preterm labor third trimester with preterm delivery third trimester, not applicable or unspecified; O10.013 Pre-existing essential hypertension complicating pregnancy, third trimester; O99.213 Obesity complicating pregnancy, third trimester; O69.81X0 Labor and delivery complicated by cord around neck, without compression, not applicable or unspecified; O99.013 Anemia complicating pregnancy, third trimester; O99.820 Streptococcus B carrier state complicating pregnancy; E66.01 Morbid (severe) obesity due to excess calories; Z3A.36 36 weeks gestation of pregnancy; Z37.0 Single live birth
CPT/HCPCS: 59025; 59050; 82565; 82570; 84156; 84450; 84460; 84550; 85027; 85461; 85610; 85730; 86850; 86900; 88307; 90384; 93005; 93306; 99218; J7050; J7120; A4216; G0378; J2790

== ENCOUNTER 2018-10-08 17:10 | Outpatient (CLI) | payer OTHER, SELFPAY ==
[2018-10-08 18:27] VITALS: BP 222/99; PULSE 50
[2018-10-08 18:30] LABS: Protein:Creat Ratio 243 mg/g CRE (0-200)
[2018-10-08 18:38] LABS: Hematocrit 38.4 % (37-47); Hemoglobin 12.1 g/dl (12.0-15.0); Mean Corp Hgb Conc 31.5 g/gl (32-36); Mean Corpuscular Volume 88.9 fL (81-99); Mean Platelet Vol. 9.2 fl (6.2-12.0); Platelet Count 256 K/mm3 (150-450); RBC Distribution Width CV 14.2 % (11.6-14.6); RBC Distribution Width SD 45.9 fl (35.1-43.9); Red Blood Count 4.32 M/mm3 (4.2-5.4); White Blood Count 11.9 K/mm3 (4.4-11.0)
[2018-10-08 18:46] LABS: Scan Indicated on CBC? Y/N NO
[2018-10-08 18:54] VITALS: BP 192/89; PULSE 66
[2018-10-08 19:02] LABS: AST(SGOT) 38 U/L (15-37); Alanine Aminotransfer ALT/SGPT 29 U/L (13-56); Creatinine, Serum 1.07 mg/dL (0.55-1.02); EST Glomerular Filtration Rate 63 mL/min (>60); Est Glom Filt Rate - Afr Amer 76 mL/min (>60); Uric Acid 7.3 mg/dL (2.6-6.0)
[2018-10-08] MEDS: NIFEdipine 10 MG Capsule 20 MG PO (19:27)
[2018-10-08 19:40] LABS: Partial Thromboplast Time 26.1 Seconds (24.1-36.2); Prothrombin Time (Protime)PT. 12.8 SECONDS (11.7-14.9)
--- NOTE | 2018-10-08 19:59 | PCM.HP.OB ---
History Date of Admission: 10/08/18 Final HANK Source: US <20 weeks History of this : Patient presented to office this afternoon with headache 6/10 and elevated blood pressures at home. Currently she states headache is 3/10. Denies blurry vision or abdominal pain. Patient has some feelings of PP depression. Denies SI/HI. She loves & enjoys her daughter. Medical History: Medical History (Last Updated 09/21/18 @ 19:55 by Igor Cook) Anemia affecting O99.019 Hx LEEP (loop electrosurgical excision procedure), cervix, O34.40, Z98.890 Obesity affecting O99.210 Chronic hypertension affecting O10.919 Allergies sulfamethoxazole [From Bactrim] Allergy (Verified 09/22/18 10:02) Rash trimethoprim [From Bactrim] Allergy (Verified 09/22/18 10:02) Rash Home Medications: Home Medications Labetalol [Trandate] 300 mg PO TID 09/21/18 Vits [Prenatabs FA] 1 tablet PO DAILY 09/21/18 Smoking Status: Never smoker History Past Pregnancies: Past Pregnancies Delivery Date Name GA/Weeks Outcome Route Weight Infant Gender Labor Length Anesthesia Delivery Location Provider FOB Physical Exam Vitals: Vital Signs Pulse BP 66 192/89 H 10/08/18 18:54 10/08/18 18:54 General: Alert, Oriented x3 Abdomen: Soft, Non Tender, Non-Distended Extremities:: No tenderness/swelling Neurological: Cranial nerves II-XII grossly intact - DTR's 1+ Assessment/Plan All Active Problems (Last Updated 09/21/18 @ 19:55 by Igor Cook) Pre-eclampsia added to pre-existing hypertension (Acute) This is a 33 year-old female PPD#16 with elevated BP's Admit for 23hr obs Elevated blood pressures - Discussed with & attribute to uncontrolled chtn. Patient previously received magnesium sulfate for severe preeclampsia. Plan for labetalol 600mg tid and nifedipine 30mg XL. Patient is s/p IV hydralazine and PO nifedipine IR. Labs reviewed & will repeat Creatinine in am. Plan of care discussed with patient & nursing staff. All questions answered.
[2018-10-08] MEDS: Labetalol 200 MG Tablet 600 MG PO (20:04)
[2018-10-08] MEDS: Acetaminophen 500 MG Tablet 1000 MG PO (20:32)
[2018-10-08] MEDS: Prenatal Vits Tablet 1 TABLET PO (20:33)
[2018-10-08] MEDS: NIFEdipine 30 MG Tablet PO (20:33)
[2018-10-08 20:34] VITALS: BMI 47.4
--- NOTE | 2018-10-08 20:37 | NURSING ---
See initial assessment in QS and BP will be recorded there as well.
[2018-10-08 21:32] VITALS: BP 118/54; PULSE 68; TEMP 36.7
--- NOTE | 2018-10-08 21:36 | NURSING ---
Pt ok to eat now that BP within parameters per order.
[2018-10-08 22:08] VITALS: BP 95/46; PULSE 69
--- NOTE | 2018-10-08 22:12 | NURSING ---
pt denies any dizziness or blurred vision
[2018-10-08 22:14] VITALS: BP 113/59; PULSE 81
--- NOTE | 2018-10-08 22:15 | NURSING ---
BP retaken while pt sitting up
--- NOTE | 2018-10-08 22:15 | NURSING ---
RN instructed pt to call RN if feeling off or dizzy, pt agreeable
--- NOTE | 2018-10-08 23:00 | NURSING ---
Dr Cook called unit and talked to this RN. Rn updated her on recent BP's and that retaken was SBP 110's. Patient was never symptomatic. Discussed SCD's for patient, Dr Cook did not feel necessary. Dr Cook instructed next dose of labetalol to be given between 2492-9800. RN will update pt on POC. RN also reported to Dr Cook that pt appears in much better state of mind now too. RN spent much time at bedside talking with patient
[2018-10-09] VITALS (8 sets, daily range): BP systolic 105–172; BP diastolic 51–92; PULSE 65–76; RESP 20; TEMP 36.7–37.3
--- NOTE | 2018-10-09 | NURSING ---
Denies visual disturbances, epigastric pain. No TEJADA at this time. No pedal edema or clonus.
[2018-10-09] MEDS: Labetalol 200 MG Tablet 400 MG PO (04:30)
[2018-10-09] MEDS: Acetaminophen 500 MG Tablet 1000 MG PO (08:03)
[2018-10-09] MEDS: 0.9 % NaCl (Sterile) Posiflush 10 mL IV (08:10)
[2018-10-09] MEDS: NIFEdipine 30 MG Tablet PO (08:34)
[2018-10-09 08:46] LABS: ALB/GLOB Ratio 0.8 RATIO (0.9-2.4); AST(SGOT) 13 U/L (15-37); Alanine Aminotransfer ALT/SGPT 24 U/L (13-56); Albumin, Serum 3.4 g/dL (3.2-5.0); Alkaline Phosphatase 58 U/L (45-117); Anion Gap 8 (5-15); BUN 14 mg/dL (7-18); BUN/Creat Ratio 14.5 RATIO (10-20); Calcium,Total 9.3 mg/dL (8.5-10.1); Chloride 109 mmol/L (98-107); Creatinine, Serum 0.97 mg/dL (0.55-1.02); EST Glomerular Filtration Rate 70 mL/min (>60); Est Glom Filt Rate - Afr Amer 85 mL/min (>60); Estimated Creatinine Clearance 68.24 ml/min; Glucose 85 mg/dL (74-106); Potassium 3.9 mmol/L (3.5-5.1); Protein, Total 7.4 g/dL (6.4-8.2); Sodium Level 142 mmol/L (136-145)
--- NOTE | 2018-10-09 10:29 | PCM.PN.OB ---
Subjective: Patient feels much better. She reports a minimal headache this am - 09/26. Patient feels congested & thinks that is causing her headache. Denies vision changes. - Physical Exam General: Alert, Oriented x3 Abdomen: Soft, Non Tender, Non-Distended - incision - well healed Extremities: No edema, No Calf Tenderness Vital Signs Temp Pulse Resp BP 98.1 F 71 20 H 128/60 H 10/09/18 08:00 10/09/18 08:00 10/09/18 08:00 10/09/18 08:00 Oxygen Delivery Method Room Air Weight: 267 lb 10.259 oz Body Mass Index (BMI) 47.4 Laboratory Tests Past 24 Hrs 10/08/18 10/08/18 10/08/18 18:00 18:20 18:20 WBC 11.9 H RBC 4.32 Hgb 12.1 Hct 38.4 MCV 88.9 MCH 28.0 MCHC 31.5 L RDW 14.2 RDW Differential 45.9 H Plt Count 256 MPV 9.2 PT Cancelled INR Cancelled APTT Cancelled Sodium Potassium Chloride Carbon Dioxide Anion Gap BUN Creatinine Estim Creat Clear Calc Est GFR (MDRD) Af Amer Est GFR (MDRD) Non-Af BUN/Creatinine Ratio Glucose Uric Acid Calcium Total Bilirubin AST ALT Alkaline Phosphatase Total Protein Albumin Globulin Albumin/Globulin Ratio U Random Total Protein 44.0 H Urine Creatinine 181.00 Protein/Creatinin Ratio 243 H 10/08/18 10/08/18 10/09/18 18:20 19:20 08:05 WBC RBC Hgb Hct MCV MCH MCHC RDW RDW Differential Plt Count MPV PT 12.8 INR 1.0 APTT 26.1 Sodium 142 Potassium 3.9 Chloride 109 H Carbon Dioxide 25.0 Anion Gap 8 BUN 14 Creatinine 1.07 H 0.97 Estim Creat Clear Calc 68.24 Est GFR (MDRD) Af Amer 76 85 Est GFR (MDRD) Non-Af 63 70 BUN/Creatinine Ratio 14.5 Glucose 85 Uric Acid 7.3 H Calcium 9.3 Total Bilirubin 0.30 AST 38 H 13 L ALT 29 24 Alkaline Phosphatase 58 Total Protein 7.4 Albumin 3.4 Globulin 4.0 Albumin/Globulin Ratio 0.8 L U Random Total Protein Urine Creatinine Protein/Creatinin Ratio Medical Necessity - Tobacco Use Smoking Status: Never smoker Assessment/Plan All Active Problems (Last Updated 09/21/18 @ 19:55 by Igor Cook) Pre-eclampsia added to pre-existing hypertension (Acute) HD#2 with uncontrolled chtn 17 days PP Chtn - BP's much improved & overall well controlled. Plan to discharge home on labetalol & nifedipine XL. Reviewed BP precautions & parameters. All questions answered. Creatine & AST have normalized.
--- NOTE | 2018-10-09 10:49 | DCINST_ITS ---
Discharge Diet: No Restrictions Discharge Activity: - - Light activity over the weekend Weight Bearing Status: Weight bearing as tolerated Call your doctor if your incision/area has: Continuous Slow Oozing, Sudden Increased Bleeding, Increased Pain/ Swelling, Increased Redness, Foul Smelling Discharge, Swelling at the incision site Call your doctor if you observe: Fever of 101 or Higher, Coldness, Increased Pain, Numbness or Tingling, Change in Color, Inability to urinate, Inability to have a bowel movement, Using more than one pad per hour, Shortness of breath, Fainting spells, Chest pain, Increased palpitations (irregular heartbeat), Uncontrolled pain Additional Instructions: If you experience any of the following, contact your healthcare provider. * Bleeding that soaks a pad every hour for 2 hours * Fever 100.4 or higher * Unrelieved incision or abdominal pain * Swelling, redness, discharge or bleeding from your incision or episiotomy site * Your incision begins to separate * Problems urinating (including inability to urinate or burning while urinating). * Visual changes * Severe headache * Flu-like symptoms * Pain or redness in one of both of your breasts * Pain, warmth, tenderness or swelling in your legs, especially the calf area * Frequent nausea and vomiting * Symptoms of depression or anxiety If you experience any of the following, call 911 or go to the nearest Emergency Room. * Chest pain * Problems breathing * Seizure activity * Partial or complete paralysis of a body part, slurred speech, weakness or drooping of the face, or a sudden inability to walk or hold your balance Call at [phone] if you have blood pressure concerns over the weekend. Allergies/Adverse Reactions: Allergies sulfamethoxazole [From Bactrim] Allergy (Verified 10/08/18 20:35) Rash trimethoprim [From Bactrim] Allergy (Verified 10/08/18 20:35) Rash Medications to take at Discharge Vits [Prenatabs FA ] 1 tablet PO DAILY 09/21/18 Labetalol [Trandate (Beta Chris)] 400 mg PO TID #90 tablet 10/09/18 Nifedipine [Procardia Xl] 30 mg PO BID #60 tab 10/09/18 The following prescriptions were given: Nifedipine [Procardia Xl] 30 mg PO BID #60 tab Follow-Up: Call to make an appointment with your doctor for an incision check in 1-2 weeks. You will also need a 6 week post- follow up appointment. Test results from this visit will be discussed in further detail at your follow- up appointment, if applicable. Primary Care Physician: Elissa Carreno DO [Primary Care Provider] -
[2018-10-09] MEDS: Labetalol 200 MG Tablet PO (11:00)
--- NOTE | 2018-10-09 11:01 | DCINST_ITS ---
Discharge Diet: No Restrictions Discharge Activity: - - Light activity over the weekend Weight Bearing Status: Weight bearing as tolerated Call your doctor if your incision/area has: Continuous Slow Oozing, Sudden Increased Bleeding, Increased Pain/ Swelling, Increased Redness, Foul Smelling Discharge, Swelling at the incision site Call your doctor if you observe: Fever of 101 or Higher, Coldness, Increased Pain, Numbness or Tingling, Change in Color, Inability to urinate, Inability to have a bowel movement, Using more than one pad per hour, Shortness of breath, Fainting spells, Chest pain, Increased palpitations (irregular heartbeat), Uncontrolled pain Additional Instructions: If you experience any of the following, contact your healthcare provider. * Bleeding that soaks a pad every hour for 2 hours * Fever 100.4 or higher * Unrelieved incision or abdominal pain * Swelling, redness, discharge or bleeding from your incision or episiotomy site * Your incision begins to separate * Problems urinating (including inability to urinate or burning while urinating). * Visual changes * Severe headache * Flu-like symptoms * Pain or redness in one of both of your breasts * Pain, warmth, tenderness or swelling in your legs, especially the calf area * Frequent nausea and vomiting * Symptoms of depression or anxiety If you experience any of the following, call 911 or go to the nearest Emergency Room. * Chest pain * Problems breathing * Seizure activity * Partial or complete paralysis of a body part, slurred speech, weakness or drooping of the face, or a sudden inability to walk or hold your balance Allergies/Adverse Reactions: Allergies sulfamethoxazole [From Bactrim] Allergy (Verified 10/08/18 20:35) Rash trimethoprim [From Bactrim] Allergy (Verified 10/08/18 20:35) Rash Medications to take at Discharge Vits [Prenatabs FA ] 1 tablet PO DAILY 09/21/18 Labetalol [Trandate (Beta Chris)] 600 mg PO TID #180 tablet 10/09/18 Nifedipine [Procardia Xl] 30 mg PO BID #60 tab 10/09/18 The following prescriptions were given: Nifedipine [Procardia Xl] 30 mg PO BID #60 tab Labetalol [Trandate (Beta Chris)] 600 mg PO TID #180 tablet Follow-Up: Call to make an appointment with your doctor for an incision check in 1-2 weeks. You will also need a 6 week post- follow up appointment. Test results from this visit will be discussed in further detail at your follow- up appointment, if applicable. Primary Care Physician: Elissa Carreno DO [Primary Care Provider] -
[2018-10-09] MEDS: Labetalol 200 MG Tablet 600 MG PO (12:43)
[2018-10-09] MEDS: Prenatal Vits Tablet 1 TABLET PO (12:43)
== END 2018-10-09 15:35 | disposition home or self-care (01) ==
LOC: WPOUT 17:16 → WP 17:17
PROVIDERS: Referring Provider Obstetrics & Gynecology; Visit Provider Obstetrics & Gynecology
DX: O11.5 Pre-existing hypertension with pre-eclampsia, complicating the puerperium (principal); O10.93 Unspecified pre-existing hypertension complicating the puerperium; O99.345 Other mental disorders complicating the puerperium; F53.0 Postpartum depression
CPT/HCPCS: 96374; 36415; 80053; 82565; 82570; 84156; 84450; 84460; 84550; 85027; 85610; 85730; 99218; G0378

== ENCOUNTER → 2019-07-30 16:52 | Outpatient (CLI) | payer OTHER, SELFPAY ==
[2019-07-30 14:12] VITALS: BMI 47.4
== END ==
PROVIDERS: Visit Provider Physician Assistant Medical
DX: J02.9 Acute pharyngitis, unspecified (principal)
CPT/HCPCS: 87070